=== PATIENT | female | born 1960 | race Caucasian/White ===

== ENCOUNTER 2020-01-21 13:57 | Emergency (ER) | payer BC, OTHER ==
[2020-01-21] MEDS ORDERED: Ondansetron 4 MG Tab.DIS PO ONE (14:25)
--- NOTE | 2020-01-21 15:02 | EDM.PDOC ---
ED HPI GENERAL MEDICAL PROBLEM - General Chief Complaint: Neurological Problem Stated Complaint: DIZZY, FEELS LIKE SHE CLD PASS OUT Time Seen by Provider: 01/21/20 14:25 Source of Information: Reports: Patient, RN Notes Reviewed History Limitations: Reports: No Limitations - History of Present Illness INITIAL COMMENTS - FREE TEXT/NARRATIVE: Patient is a 59-year-old female who presents to the ED for the evaluation of her sudden onset dizziness. Patient notes that she was at work, when roughly 2 hours prior to coming to the ER, she noted some sudden world spinning type dizzi ness. She notes that position changes seem to make this extremely worse. She states that going from the sitting position to laying down seems to really aggravate the dizziness. She states that she got severely nauseated as well and has had some dry heaves. She does note that a few years ago she had vertigo- like symptoms. She is also quite worried about heart related illness, she states that her father had a stroke in his 50s, and her younger brother in his 40s had from a heart attack, she also notes another brother with strokes. She states that she takes an aspirin daily, and does follow with Dr. Gillis for cardiology, states she has an appoint with him on the . She also has an appoint with Dr. Christen Sparks her primary care provider next week. She is not having any fevers or chills, cough or shortness of breath, she is complaining of nausea or dry heaving, and the dizziness when she lays down. She does have a recent history of COVID-19, infected 3 weeks ago but has been cleared of her disease since then. - Related Data Allergies Allergy/AdvReac Type Severity Reaction Status Date / Time No Known Allergies Allergy Verified 12/17/18 10:39 Home Meds: Home Meds Aspirin [Halfprin] 81 mg PO DAILY 01/21/20 [History] Ondansetron [Zofran ODT] 4 mg PO Q8H PRN #15 tab.dis 01/21/20 [Rx] Rosuvastatin [Crestor] 0 mg PO DAILY 01/21/20 [History] Ubidecarenone [Co Q-10] 200 mg PO DAILY 01/21/20 [History] hydroCHLOROthiazide [Hydrochlorothiazide] 25 mg PO DAILY 01/21/20 [History] lisinopriL [Lisinopril] 5 mg PO DAILY 01/21/20 [History] Past Medical History Cardiovascular History: Reports: High Cholesterol, Hypertension Gastrointestinal History: Reports: GERD Other Gastrointestinal History: not on any meds for heartburn takes tums prn Neurological History: Reports: Other (See Below) Other Neuro History: tummor to [facility] and has neurologist [facility] Psychiatric History: Reports: Other (See Below) Other Psychiatric History: stress - Infectious Disease History Infectious Disease History: Reports: Novel Coronavirus (december 2019) - Past Surgical History Cardiovascular Surgical History: Reports: Other (See Below) Other Cardiovascular Surgeries/Procedures: heart disease Social & Family History - Family History Cardiac: Reports: [place] (Younger brother in his 40s) Neurological: Reports: CVA (father and brother in their 50s) - Tobacco Use Smoking Status *Q: Never Smoker - Caffeine Use Caffeine Use: Reports: Coffee - Recreational Drug Use Recreational Drug Use: No ED ROS GENERAL - Review of Systems Review Of Systems: Comprehensive ROS is negative, except as noted in HPI. ED EXAM, DIZZINESS - Physical Exam Exam: See Below Exam Limited By: No Limitations General Appearance: Alert, WD/WN, No Apparent Distress, Anxious (slight anxiety noted) Eye Exam: Bilateral Eye: Normal Inspection, PERRL Nystagmus: reproducible, short duration Ears: Normal External Exam, Normal Canal, Hearing Grossly Normal, Normal TMs Head Exam: Atraumatic, Normocephalic Vertigo: reproducible (from sitting to laying down), short duration Respiratory/Chest: No Respiratory Distress, Lungs Clear, Normal Breath Sounds, No Accessory Muscle Use, Chest Non-Tender Cardiovascular: Normal Peripheral Pulses, Regular Rate, Rhythm, No Murmur Neurological: Alert, Normal Mood/Affect, No Motor/Sensory Deficits, Oriented x 3 Extremities: Normal Inspection, Normal Capillary Refill Psychiatric: Normal Affect, Normal Mood Skin Exam: Warm, Dry, Intact, Normal Color, No Rash EKG INTERPRETATION EKG Date: 01/21/20 Time: 15:04 Rhythm: NSR Rate (Beats/Min): 70 [place]: Normal P-Wave: Present QRS: Normal ST-T: Normal QT: Normal EKG Interpretation Comments: No obvious ischemia or acute ST changes noted, reviewed by myself and Dr. Hendricks. Course - Vital Signs Last Recorded V/S: Last Vital Signs Temp 98.3 F 01/21/20 14:24 Pulse 83 01/21/20 14:24 Resp 20 01/21/20 14:24 BP 169/93 H 01/21/20 14:24 Pulse Ox 96 01/21/20 14:24 - Orders/Labs/Meds Orders: Active Orders 24 hr Category Date Time Status EKG Documentation Completion [RC] STAT Care 01/21/20 14:48 Ordered Labs: Laboratory Tests 01/21/20 01/21/20 Range/Units 15:00 15:00 WBC 6.86 (3.98-10.04) K/mm3 RBC 4.80 (3.98-5.22) M/mm3 Hgb 13.9 (11.2-15.7) gm/dl Hct 42.2 (34.1-44.9) % MCV 87.9 (79.4-94.8) fl MCH 29.0 (25.6-32.2) pg MCHC 32.9 (32.2-35.5) g/dl RDW Std Deviation 42.1 (36.4-46.3) fL Plt Count 220 (182-369) K/mm3 MPV 8.9 L (9.4-12.3) fl Neut % (Auto) 74.9 H (34.0-71.1) % Lymph % (Auto) 18.2 L (19.3-51.7) % [place] % (Auto) 5.5 (4.7-12.5) % Eos % (Auto) 0.9 (0.7-5.8) Baso % (Auto) 0.4 (0.1-1.2) % Neut # (Auto) 5.13 (1.56-6.13) K/mm3 Lymph # (Auto) 1.25 (1.18-3.74) K/mm3 [place] # (Auto) 0.38 H (0.24-0.36) K/mm3 Eos # (Auto) 0.06 (0.04-0.36) K/mm3 Baso # (Auto) 0.03 (0.01-0.08) K/mm3 Sodium 138 (136-145) mEq/L Potassium 3.4 L (3.5-5.1) mEq/L Chloride 100 (98-107) mEq/L Carbon Dioxide 26 (21-32) mEq/L Anion Gap 15.4 H (5-15) BUN 17 (7-18) mg/dL Creatinine 0.9 (0.55-1.02) mg/dL Est Cr Clr Drug Dosing 59.81 mL/min Estimated GFR (MDRD) > 60 (>60) mL/min BUN/Creatinine Ratio 18.9 H (14-18) Glucose 143 H (74-106) mg/dL Calcium 9.6 (8.5-10.1) mg/dL Total Bilirubin 0.9 (0.2-1.0) mg/dL AST 28 (15-37) U/L ALT 40 (14-59) U/L Alkaline Phosphatase 112 (46-116) U/L Troponin I < 0.017 (0.00-0.056) ng/mL Total Protein 7.9 (6.4-8.2) g/dl Albumin 4.3 (3.4-5.0) g/dl Globulin 3.6 gm/dL Albumin/Globulin Ratio 1.2 (1-2) Meds: Medications Discontinued Medications Generic Name Dose Route Start Last Admin Trade Name Traeq PRN Reason Stop Dose Admin Meclizine HCl 25 mg 01/21/20 14:25 01/21/20 14:54 Antivert PO 01/21/20 14:26 25 mg ONETIME ONE Administration Ondansetron HCl 4 mg 01/21/20 14:25 01/21/20 14:54 Zofran Odt PO 01/21/20 14:26 4 mg ONETIME ONE Administration - Re-Assessments/Exams Free Text/Narrative Re-Assessment/Exam: 01/21/20 15:06 Patient presents to the ED for the evaluation of her sudden onset dizziness. This does highly sound like vertigo in nature. Patient was given a dose of meclizine and Zofran initially for management of her symptoms. EKG and basic labs to be obtained to rule out cardiac etiology, she states she has been having some mild heartburn type symptoms for the past few days as well. Again this is more likely due to vertigo in nature due to the sudden onset, and positional aspect of the disease. 01/21/20 15:44 Labs did return, and are unremarkable. She does appear to be slightly dehydrated. This can be resolved by oral hydration therapy at home. Patient did report an improvement in her dizziness, after the meclizine, states that she feels slightly nauseous. She will have a few more tablets of Zofran given to her for outpatient management, and she will be discharged home with general recommendations I told her if her vertigo does not seem to be getting better by Saturday or Saturday, that she should get a referral to PT for her vertigo. Patient verbalized understanding. States she will talk to Dr. Sparks on Saturday if she needs this. Departure - Departure Time of Disposition: 15:45 Disposition: Home, Self-Care 01 Condition: Good Clinical Impression: Benign positional vertigo Qualifiers: Laterality: unspecified laterality Qualified Code(s): H81.10 - Benign paroxysmal vertigo, unspecified ear - Discharge Information *PRESCRIPTION DRUG MONITORING PROGRAM REVIEWED*: No *COPY OF PRESCRIPTION DRUG MONITORING REPORT IN PATIENT ALFREDO: No Prescriptions: Ondansetron [Zofran ODT] 4 mg PO Q8H PRN #15 tab.dis PRN Reason: Nausea Instructions: Vertigo, [id number] Referrals: Christen Sparks RN [Primary Care Provider] - Forms: ED Department Discharge, ED Return to Work/School Form Additional Instructions: You were evaluated in the ER today for your sudden onset dizziness. Your EKG showed no sign of cardiac ischemia, or acute cardiac change that would be the cause of some of your symptoms today. Your laboratory evaluation also was unremarkable. Please continue to increase oral fluid hydration at home, as sometimes slight dehydration can precipitate vertigo type feelings. You were given a prescription for Zofran, please use 1 tab dissolvable under your tongue every 8 hours as needed for further nausea management. You did report mild improvement from your symptoms with meclizine, you may use this [id number], 1 tab 4 times a day as needed for further vertigo symptoms. If this is not much better by next week Saturday or Saturday I recommend that you get a referral to PT for vertigo at that time. You can obtain meclizine [id number], it is commonly marketed as Bonine or Antivert, you can find this near the Benadryl or other motion sickness medications. Please return to the ER at any time if your symptoms change or worsen. Sepsis Event Note (ED) - Evaluation Sepsis Screening Result: No Definite Risk - Focused Exam Vital Signs: Vital Signs Temp Pulse Resp BP Pulse Ox 01/21/20 14:24 98.3 F 83 20 169/93 H 96 - My Orders Last 24 Hours: My Active Orders 01/21/20 14:48 EKG Documentation Completion [RC] STAT - Assessment/Plan Last 24 Hours: My Active Orders 01/21/20 14:48 EKG Documentation Completion [RC] STAT
== END 2020-01-21 16:09 | disposition home or self-care (01) ==
LOC: JD.ED 13:57
DX: H81.10 Benign paroxysmal vertigo, unspecified ear (principal); E78.00 Pure hypercholesterolemia, unspecified; I10 Essential (primary) hypertension; Z79.82 Long term (current) use of aspirin; Z79.899 Other long term (current) drug therapy
CPT/HCPCS: 36415; 80053; 84484; 85025; 93005; 99284; A9270; 93010; 99283